=== PATIENT | male | born 1950 | race Caucasian/White ===

== ENCOUNTER 2018-01-15 14:39 | Emergency (ER) | payer OTHER ==
[~2018-01-15] VITALS: Ht 177.8 cm; Wt 97.5 kg
[2018-01-15] MEDS ORDERED: TOUJEO SOL300 UNIT/1 SC (14:55)
[2018-01-15] MEDS ORDERED: TAMS.4ER PO (14:55)
[2018-01-15] MEDS ORDERED: LOSA50 PO (14:55)
[2018-01-15] MEDS ORDERED: METF500C PO (14:55)
[2018-01-15] MEDS ORDERED: FINA5 PO (14:55)
[2018-01-15] MEDS ORDERED: ASPI81CH PO (14:56)
[2018-01-15] MEDS ORDERED: JARDIANCE10 MG PO (14:56)
[2018-01-15] MEDS ORDERED: Omeprazole20 M1 PO (14:56)
[2018-01-15] MEDS ORDERED: Novolog100 UNIT/1 (14:56)
[2018-01-15] MEDS ORDERED: TRULICITY1.5 MG/0.5 SC (14:56)
[2018-01-15] MEDS ORDERED: CARV25 PO (14:56)
== END 2018-01-15 17:52 | disposition home or self-care (01) ==
LOC: ER 14:39
DX: S01.111A Laceration without foreign body of right eyelid and periocular area, initial encounter (principal); I10 Essential (primary) hypertension; E11.9 Type 2 diabetes mellitus without complications; Z88.8 Allergy status to other drugs, medicaments and biological substances; Z79.899 Other long term (current) drug therapy; Z79.84 Long term (current) use of oral hypoglycemic drugs; W21.03XA Struck by baseball, initial encounter
CPT/HCPCS: 12054; 70486; 99283-25